=== PATIENT | female | born 1940 | race Caucasian/White ===

== ENCOUNTER 2016-04-18 09:58 | Day surgery (SDC) | payer MEDICARE, MEDICAID ==
[~2016-04-18 09:58] MED LIST: ACETAMINOPHEN 1000MG/100 ML PREMIX IV ONE; FAMOTIDINE 20MG TABLET PO ONE; MECLIZINE 25 MG TABLET PO ONE; METOCLOPRAMIDE 10 MG TABLET PO ONE
[2016-04-18 10:09] LABS: BASO % 0.4 % (0-6); EOS % 1.4 % (0-6); GRAN % 52.4 % (47-80); HEMATOCRIT 44.6 % (35.0-47.0); HEMOGLOBIN 15.1 gm/dl (11.6-16.0); LYMPH % 38.7 % (16-45); MEAN CELL VOLUME 93.3 fl (81-97); MEAN CORPUSCULAR HEMOGLOBIN 31.6 pg (27-33); MEAN CORPUSCULAR HGB CONC 33.9 g/dl (32-36); MEAN PLATELET VOLUME 9.6 fl (7.4-10.4); MONO % 7.1 % (0-9); PLATELET COUNT 313 K/uL (130-400); RED BLOOD COUNT 4.78 M/uL (3.80-5.40); RED CELL DISTRIBUTION WIDTH 13.3 % (11.5-14.5); WHITE BLOOD COUNT W/O DIFF 8.1 K/uL (4.2-12.2)
[2016-04-18 10:23] LABS: ANION GAP 8.6 (7-16); BLOOD UREA NITROGEN 7 mg/dL (7-17); CARBON DIOXIDE 30.4 mmol/L (22-30); CREATININE 0.5 mg/dL (0.52-1.04); EST GLOMERULAR FILTRATION RATE > 60 ml/min; GLUCOSE,RANDOM 104 mg/dL (70-110)
[2016-04-18] MEDS ORDERED: GLYCOPYRROLATE 0.2 MG/ML ML IV ONE (12:27)
[2016-04-18] MEDS ORDERED: NEOSTIGMINE 1 MG/1 ML,10ML VIAL IV ONE (12:27)
[2016-04-18] MEDS ORDERED: LIDOCAINE 2% MDV (20MG/ML) 20ML VIAL IV ONE (12:27)
[2016-04-18] MEDS ORDERED: FENTANYL PF 100MCG/2ML VIAL IV ONE (12:27)
[2016-04-18] MEDS ORDERED: PROPOFOL 10 MG/ML VIAL IV ONE (12:27)
[2016-04-18] MEDS ORDERED: ROCURONIUM BROMIDE 50MG/5ML VIAL IV ONE (12:27)
[2016-04-18] MEDS ORDERED: ONDANSETRON HCL IV 4 MG/2 ML VIAL IVP ONE (12:27)
[2016-04-18] MEDS ORDERED: SEVOFLURANE 250 ML INH ONE (12:27)
[2016-04-18] MEDS ORDERED: SUCCINYLCHOLINE 20 MG/ML 10ML IVP ONE (12:27)
[2016-04-18] MEDS ORDERED: MIDAZOLAM HCL 2MG/2ML VIAL IV ONE (12:27)
--- NOTE | 2016-04-18 12:59 | Medical Records Consult ---
CONSULTATION DATE: 04/18/2016. CHIEF COMPLAINT: Left lower extremity wound. HISTORY OF CHIEF COMPLAINT: The patient is a 79-year-old female who, back in February, fell off her step and lacerated the anterior aspect of her left lower leg at an oblique angle. She had a suture repair done on 02/15/2016 and had sutures removed about one week after that. The proximal and distal ends of the wound healed well. However, the central part did dehisce. She stated that this began to drain a foul-smelling liquid and she was seen in the emergency room. A CT scan was done which did not reveal any underlying abscess or obvious osteomyelitis. She has been treated with intravenous antibiotics. She did get a follow up MRI which did reveal a small 1.1 cm abscess with possible osteomyelitis. PAST MEDICAL HISTORY: Includes chronic obstructive pulmonary disease, cardiovascular disease. PAST SURGICAL HISTORY: She states that she cannot recall her past surgical history. CURRENT MEDICATIONS: Include Prilosec, Climara, bupropion, iron, ProAir, and Albuterol. ALLERGIES: She has allergies to penicillin. SOCIAL HISTORY: She denies any tobacco or alcohol usage. PHYSICAL EXAMINATION: Heart: Regular rate and rhythm. Lungs: Clear. Abdomen: Soft. Extremities: The left lower extremity shows an open wound about 8.0 x 5.0 cm. There is some necrotic tissue in the central part. There is a small surrounding area of cellulitis. DIAGNOSTIC DATA: I did review her MRI which did show a potential 1.1 cm abscess with osteomyelitis. PLAN: At this point we did discuss wound debridement versus continued observation. We will take her today for wound debridement. Cultures will be taken. I think she would benefit from a wound VAC. This will be ordered on the floor to put on postoperatively. She also may need a PICC line for long- term antibiotics secondary to her osteomyelitis. Thank you for allowing me to participate in the care of your patient. Please do not hesitate to contact me if I can be of any further assistance. Thank you for this referral. Sivakumar D. Deppen, D.O. Date Time JOB NUMBER: [id number] MTDD
[2016-04-18] MEDS ORDERED: BUPIVACAINE 0.5% W/EPI MPF 30 ML VIAL IVP ONE (13:00)
[2016-04-18] MEDS ORDERED: HYDROCODONE/APAP 5/325MG TABLET PO ONE (13:00)
--- NOTE | 2016-04-20 14:29 | Operative Note ---
DATE OF PROCEDURE: 04/18/2016. SURGEON: Sivakumar Lee D.O. REFERRING PHYSICIAN: Lesvia Stacy M.D. PREOPERATIVE DIAGNOSIS: CHRONIC CHOLECYSTITIS, CHOLELITHIASIS. POSTOPERATIVE DIAGNOSIS: CHRONIC CHOLECYSTITIS, CHOLELITHIASIS. PROCEDURE: Laparoscopic cholecystectomy. INDICATIONS: The patient is a 76-year-old female who was having ongoing right subcostal postprandial pain. Imaging studies did reveal a freely movable, fairly sizable gallstone. We did discuss cholecystectomy versus medical management. She desired surgical intervention. Her risks include, but are not limited to, bleeding, infection, ductal injury, possible conversion to open, and postoperative bile leak, and she understood this fully. Therefore, consent was signed and questions were answered. DESCRIPTION OF PROCEDURE: She was taken to the operating room and was placed in the supine position. General anesthesia was administered per the Department of Anesthesia. The patient's abdomen was prepped and draped in the usual fashion. Adequate time out was performed. Her identity was confirmed. At this time the infraumbilical region was anesthetized with a total of 3.0 mL of 0.25% Sensorcaine with epinephrine. A 2.0-cm infraumbilical incision was made. This was carried down to the anterior rectus fascia. This was incised. Rita clamps were placed, and the fascial edges were brought up into the wound. Stay sutures of 0 Vicryl were placed. The posterior rectus sheath was identified and incised. The peritoneal cavity was entered bluntly. At this time a 10-mm blunt Valencia port was placed and adequate pneumoperitoneum was established. Under direct visualization, an additional 5.0-mm epigastric and two 5.0-mm right subcostal ports were placed. The gallbladder was identified in the subhepatic space. The hepatocystic triangle was thoroughly dissected out. There was no aberrant anatomy. No posterior ductal structures here. The cystic duct and cystic artery were clearly identified. Each one was doubly clipped and cut in a standard fashion. The gallbladder was then taken off of the liver bed with the Ezio Harmonic. This was extracted infraumbilically. At this time pneumoperitoneum was released, and all ports were removed. The fascia was closed with 0 Vicryl in [id number] fashion. The skin and all four ports were closed with 4-0 Vicryl. She was taken to Recovery in satisfactory condition. FINDINGS AT THE TIME OF SURGERY: CHRONIC CHOLECYSTITIS. Sivakumar Lee D.O. Date Time cc: Lesvia Stacy M.D. JOB NUMBER: [id number] MTDD
== END 2016-04-18 13:20 | disposition home or self-care (01) ==
LOC: SUR 09:58
PROVIDERS: ATTEND Surgery
DX: K80.10 Calculus of gallbladder with chronic cholecystitis without obstruction (principal); E78.00 Pure hypercholesterolemia, unspecified
CPT/HCPCS: 47562; 00790; 85025; 80048; J2405; J3010; J0330; J2710

== ENCOUNTER 2016-06-02 11:34 | Emergency (ER) | payer MEDICARE, MEDICAID ==
--- NOTE | 2016-06-02 12:50 | Emergency Department Record ---
History of Present Illness - General Chief Complaint: Ankle/Foot Injury Stated Complaint: LEFT ANKLE INJURY Time Seen by Provider: 06/02/16 11:56 Source: Patient Mode of Arrival: Wheelchair Limitations: No limitations - History of Present Illness Initial Comments: pt stood up and l ankle went out on her. she heard a pop and had pain in her ankle. Complaint: Ankle injury Onset/Timin -: Hour(s) Injury: Ankle: Left Type of Injury: Unknown Place: Home Severity: Moderate Severity scale (1-10): 7 Improves With: Nothing Worsens With: Weight bearing Context: Other Associated Symptoms: Swelling, Unable to bear weight - Related Data Home Medications Medication Instructions Recorded Confirmed Last Taken Cholecalciferol (Vitamin D3) 1,000 unit PO DAILY 06/02/16 06/02/16 06/02/16 [Vitamin D3] Fluticasone/Salmeterol [Advair 06/02/16 06/02/16 250-50 Diskus] Latanoprost 0.005% Opth Che 1 drop EACH EYE DAILY 06/02/16 06/02/16 06/02/16 [Xalatan] Multivitamin [Multi-Vitamin Daily] 1 each PO DAILY 06/02/16 06/02/16 06/02/16 Allergies Allergy/AdvReac Type Severity Reaction Status Date / Time codeine Allergy SWELLING Verified 04/06/16 10:00 OF THE LIPS NSAIDS (Non-Steroidal AdvReac NAUSEA Verified 04/06/16 10:00 Anti-Inflamma Travel Screening - Travel/Exposure Within Last 30 Days Have you traveled within the last 30 days?: No - Travel/Exposure Within Last Year Have you traveled outside the [place] in the last year?: No - Additonal Travel Details Have you been exposed to anyone with a communicable illness?: No - Travel Symptoms Symptom Screening: None Review of Systems Reviewed: No additional complaints except as noted below Constitutional: Reports: As per HPI. Denies: Chills, Fever, Malaise, Night sweats, Weakness, Weight change Eyes: Reports: As per HPI. Denies: Eye discharge, Eye pain, Photophobia, Vision change ENT: Reports: As per HPI. Denies: Congestion, Dental pain, Ear pain, Epistaxis , Hearing loss, Throat pain Respiratory: Reports: As per HPI. Denies: Cough, Dyspnea, Hemoptysis, Stridor, Wheezes Cardiovascular: Reports: As per HPI. Denies: Arrhythmia, Chest pain, Dyspnea on exertion, Edema, Murmurs, Orthopnea, Palpitations, Paroxysmal nocturnal dyspnea, Rheumatic Fever, Syncope Endocrine: Reports: As per HPI. Denies: Fatigue, Heat or cold intolerance, Polydipsia, Polyuria Gastrointestinal: Reports: As per HPI. Denies: Abdominal pain, Constipation, Diarrhea, Hematemesis, Hematochezia, Melena, Nausea, Vomiting Genitourinary: Reports: As per HPI. Denies: Abnormal menses, Discharge, Dyspareunia, Dysuria, Frequency, Hematuria, Incontinence, Retention, Urgency Musculoskeletal: Reports: As per HPI. Denies: Arthralgia, Back pain, Gout, Joint swelling, Myalgia, Neck pain Skin: Reports: As per HPI. Denies: Bruising, Change in color, Change in hair/ nails, Lesions, Pruritus, Rash Neurological: Reports: As per HPI. Denies: Abnormal gait, Confusion, Headache, Numbness, Paresthesias, Seizure, Tingling, Tremors, Vertigo, Weakness Psychiatric: Reports: As per HPI. Denies: Anxiety, Auditory hallucinations, Depression, Homicidal thoughts, Suicidal thoughts, Visual hallucinations Hematological/Lymphatic: Reports: As per HPI. Denies: Anemia, Blood Clots, Easy bleeding, Easy bruising, Swollen glands Past Medical History - SOCIAL HISTORY Smoking Status: Light tobacco smoker (<10/day) - RESPIRATORY Hx Respiratory Disorders: Yes Hx COPD: Yes Hx Pneumonia: Yes (6 YRS OLD) Comment:: EMPHYSEMA, SMOKER - CARDIOVASCULAR Hx Cardio Disorders: No - NEURO Hx Neuro Disorders: No - GI Hx GI Disorders: Yes Hx Abdominal Pain: Yes (SINCE CHOLELITHIASIS) Hx Irritable Bowel: Yes (R/T GALLBLADDER) Hx Nausea/Vomiting: Yes - Hx Genitourinary Disorders: No - ENDOCRINE Hx Endocrine Disorders: No - MUSCULOSKELETAL Hx Musculoskeletal Disorders: No Comment:: NORMAL BONE DENSITY - PSYCH Hx Psych Problems: Yes Hx Anxiety: Yes - HEMATOLOGY/ONCOLOGY Hx Hematology/Oncology Disorders: No Family Medical History Any Significant Family History?: Yes Hx Cancer: Father Hx Heart Disease: Brother/Sister Physical Exam - General General Appearance: Alert, Oriented x3, Cooperative, Mild distress - Head Head exam: Normal inspection - Eye Eye exam: Normal appearance, PERRL, EOMI Pupils: Normal accommodation - ENT ENT exam: Normal exam, Mucous membranes moist, Normal external ear exam, Normal orophraynx Ear exam: Normal external inspection. negative: External canal tenderness Nasal Exam: Normal inspection. negative: Discharge, Sinus tenderness Mouth exam: Normal external inspection, Tongue normal Teeth exam: Normal inspection. negative: Dental caries Throat exam: Normal inspection. negative: Tonsillar erythema, Tonsillar exudate - Neck Neck exam: Normal inspection, Full ROM. negative: Tenderness - Respiratory Respiratory exam: Normal lung sounds bilaterally. negative: Respiratory distress - Cardiovascular Cardiovascular Exam: Regular rate, Normal rhythm, Normal heart sounds - GI/Abdominal GI/Abdominal exam: Soft, Normal bowel sounds. negative: Tenderness - Rectal Rectal exam: Deferred - exam: Deferred - Extremities Extremities exam: Normal capillary refill, Tenderness. negative: Normal inspection, Full ROM Image of Feet: 1 - swelling, tender - Back Back exam: Reports: Normal inspection, Full ROM. Denies: Muscle spasm, Rash noted, Tenderness - Neurological Neurological exam: Alert, CN II-XII intact, Normal gait, Oriented X3 - Psychiatric Psychiatric exam: Normal affect, Normal mood - Skin Skin exam: Dry, Intact, Normal color, Warm Distribution of rash: LLE Course Vital Signs 06/02/16 11:38 Temperature 97.6 F Pulse Rate 73 Respiratory 20 Rate Blood Pressure 127/75 Pulse Ox 95 - Reevaluation(s) Reevaluation #1: 06/02/16 12:52 radiologist read film neg w small possibility of avulsion fx Disposition Disposition: Discharge Clinical Impression: Sprain of ankle Qualifiers: Encounter type: initial encounter Involved ligament of ankle: unspecified ligament Laterality: left Qualified Code(s): S93.402A - Sprain of unspecified ligament of left ankle, initial encounter Avulsion fracture of ankle Qualifiers: Encounter type: initial encounter Fracture type: closed Laterality: left Qualified Code(s): S82.892A - Other fracture of left lower leg, initial encounter for closed fracture Disposition: Home, Self-Care Condition: (1) Good Instructions: Ankle Sprain (ED), Ankle Fracture (ED) Additional Instructions: follow up with family doctor and orthopedic doctor. return sooner if worse. ice and elevate Forms: Patient Portal Access
== END 2016-06-02 13:04 | disposition home or self-care (01) ==
LOC: ER 11:34
DX: S82.892A Other fracture of left lower leg, initial encounter for closed fracture (principal); X50.0XXA Overexertion from strenuous movement or load, initial encounter; Y92.009 Unspecified place in unspecified non-institutional (private) residence as the place of occurrence of the external cause
CPT/HCPCS: 99283

== ENCOUNTER 2016-08-15 09:53 | Day surgery (SDC) | payer MEDICARE, MEDICAID ==
[2016-08-15] MEDS ORDERED: LIDOCAINE 2% MDV (20MG/ML) 20ML VIAL IV ONE (15:37)
[2016-08-15] MEDS ORDERED: PROPOFOL 10 MG/ML VIAL IV ONE (15:37)
[2016-08-15] MEDS ORDERED: FENTANYL PF 100MCG/2ML VIAL IV ONE (15:37)
--- NOTE | 2016-08-17 11:10 | Operative Note ---
DATE OF SURGERY: 08/15/2016 REFERRING PHYSICIAN: Lesvia Stacy MD PREOPERATIVE DIAGNOSIS: See below. POSTOPERATIVE DIAGNOSIS: See below. PROCEDURE: ESOPHAGOGASTRODUODENOSCOPY. INDICATION: Recent episodes of epigastric pain, clinically improved following cholecystectomy. Patient still has some mild intermittent pain and has sustained modest weight loss. Upper endoscopy is performed at this time for further evaluation. Intravenous sedation was administered by the Department of Anesthesiology and included Diprivan titrated to effect. PROCEDURE: Following informed consent from this alert individual, including a discussion of the risks and benefits of the procedure and an opportunity for the patient to ask questions, the patient was placed in the left lateral decubitus position. An Olympus [id number] video endoscope was inserted into the esophagus without resistance. The proximal esophagus had a normal appearance with normal folds and distensibility. The mid and distal esophagus, likewise, were free from abnormalities. The stomach was entered. The gastric fundus and pars media had a normal appearance with normal folds and distensibility. The antrum was evaluated circumferentially and demonstrated erythematous patches without active ulcerations or erosions noted. The pylorus itself was symmetrical and patent. The duodenal bulb, sweep and descending duodenum were examined in a serial fashion and found to be normal except for large duodenal diverticulum in the second portion. The endoscope was then withdrawn back into the body of the stomach, where retroflexion accomplished following air insufflation failed to demonstrate any additional changes. The endoscope was then straightened. Multiple biopsies were taken from throughout the stomach to assess for Helicobacter pylori and check histology. After biopsying, the endoscope was withdrawn back through a normal esophagus and removed from the patient. The patient tolerated the procedure well and was returned to the recovery area in stable condition. IMPRESSION: 1. Antral gastritis. Biopsies taken from the stomach. 2. Large duodenal diverticulum. RECOMMENDATIONS: Further recommendations will be forthcoming pending results of pathology obtained today. Patient will be following up with Dr. Stacy. As always, thank you for allowing me to participate in the care of your patient. Anant Santos DO CC: Lesvia Stacy MD [facility]
--- NOTE | 2016-08-17 11:10 | Operative Note ---
DATE OF SURGERY: 08/15/2016 PREOPERATIVE DIAGNOSIS: See below. POSTOPERATIVE DIAGNOSIS: See below. PROCEDURE: COLONOSCOPY to the cecum with cold snare polypectomy x 2. INDICATION: Prior history of colon polyps. Patient presents today for screening. Her polyps in the past were large, but were hypoplastic when evaluated by Pathology. She denies any current lower GI concerns. Intravenous sedation was administered by the Department of Anesthesiology and included Diprivan titrated to effect. PROCEDURE: Following informed consent from this alert individual, including a discussion of the risks and benefits of the procedure and an opportunity for the patient to ask questions, the patient was placed in the left lateral decubitus position. A digital rectal examination was performed. No abnormalities were detected. Following this, an Olympus [id number] video colonoscope was inserted into the rectum without resistance. The rectal mucosa had a normal appearance, with normal folds and distensibility when initially evaluated. The sigmoid colon had extensive diverticulosis, which extended up into the descending colon as well. No other mucosal changes appreciated. The colonoscope was advanced to the level of the cecum. The cecum was defined by noting the appendiceal orifice and ileocecal valve. The colon preparation was fair to good. Washing and suctioning was employed vigorously with good visualization. Within the cecum, the colonoscope was retroflexed upon itself. No changes were noted. Following this, the colonoscope was then withdrawn slowly, reevaluating the mucosa upon withdrawal. Again, there was extensive left colonic diverticulosis. There were some small amounts of retained stool, which were washed away with water wash, and as best visualized, no changes were noted until the rectum was reached. In the distal rectum there were two 4-5 mm polyps noted, each removed with cold snare polypectomy and suctioned through the endoscope into the collection trap. There were numerous other diminutive polyps noted in the rectum. Retroflexion failed to demonstrate any additional changes. The endoscope was straightened and withdrawn. The patient tolerated the procedure well and was returned to the recovery area in stable condition. IMPRESSION: 1. Extensive left colonic diverticulosis. 2. Two rectal polyps as described above, removed with cold snare polypectomy. RECOMMENDATIONS: The patient was advised she should receive a copy of her pathology report at home in the next 2-3 weeks. If not, she was asked to call my office to review results of testing today. Further recommendations will be forthcoming pending those results. Followup will be with Dr. Lesvia Stacy as well. As always, thank you for allowing me to participate in the care of your patient. Anant Santos DO CC: Lesvia Stacy MD MTDD
== END 2016-08-15 12:33 | disposition home or self-care (01) ==
LOC: HOP 09:53
PROVIDERS: ATTEND Internal Medicine Gastroenterology
DX: Z86.010 Personal history of colon polyps (principal); D12.8 Benign neoplasm of rectum; K29.50 Unspecified chronic gastritis without bleeding
CPT/HCPCS: 43239; 45385; 00810; J3010